=== PATIENT | male | born 1935 | race Caucasian/White ===

== ENCOUNTER 2016-09-20 20:04 | Emergency (ER) | payer MEDICARE ==
[~2016-09-20] VITALS: Ht 182.9 cm; Wt 76.2 kg
[~2016-09-20 20:04] MED LIST: SUMA25TA PO
--- NOTE | 2016-09-20 21:00 | NUR ---
Received pt from triage for rt arm fracture, per pt a tree fell on him and injured his rt arm. Swollen and mildly reddened. Xray and head/back CT done, positive for fracture, negative for head CT and degenerative disc disease for the spinal CT.
--- NOTE | 2016-09-20 21:30 | NUR ---
Applied icepacks and orthopedic treatment were done by Allison.
--- NOTE | 2016-09-20 22:00 | NUR ---
Patient discharged to home in stable conditon. Written and verbal after care instructions given. Patient verbalizes understanding of instructions.
[2016-09-20 22:14] VITALS: BP 146/77
== END 2016-09-20 22:00 | disposition home or self-care (01) ==
LOC: ER 20:04
DX: S52.571A Other intraarticular fracture of lower end of right radius, initial encounter for closed fracture (principal); I10 Essential (primary) hypertension; F10.20 Alcohol dependence, uncomplicated; M54.2 Cervicalgia; R51 Headache; W18.30XA Fall on same level, unspecified, initial encounter; Y93.89 Activity, other specified; Y99.8 Other external cause status; Y92.89 Other specified places as the place of occurrence of the external cause
CPT/HCPCS: 70450; 72125; 73110; A4663

== ENCOUNTER 2017-02-09 07:19 | Emergency (ER) | payer MEDICARE ==
[~2017-02-09] VITALS: Ht 182.9 cm; Wt 74.8 kg
--- NOTE | 2017-02-09 07:37 | NUR ---
ER MD at the bedside for eval and exam.
[2017-02-09 07:59] LABS: EOSINOPHILS # (AUTO) 0.1 K/uL (0.0-0.7); EOSINOPHILS % (AUTO) 1.6 % (0.0-7.0); LYMPHOCYTES # (AUTO) 1.2 K/UL (0.8-4.8); MONOCYTES # (AUTO) 0.5 K/UL (0.1-1.30)
[2017-02-09 08:03] LABS: BASOPHILS % (AUTO) 0.6 % (0.0-2.0); HEMATOCRIT 37.5 % (40-50); HEMOGLOBIN 12.7 G/DL (14.0-18.0); LYMPHOCYTES % (AUTO) 16.2 % (20.5-51.5); MEAN CORPUSCULAR HEMOGLOBIN 31.9 UUG (27.0-31.0); MEAN CORPUSCULAR HGB CONC 34 g/dL (32.0-37.0); MEAN CORPUSCULAR VOLUME 94.1 FL (82.0-92.0); MONOCYTES % (AUTO) 6.5 % (0.0-11.0); NEUTROPHILS # (AUTO) 5.5 K/UL (1.8-8.9); NEUTROPHILS % (AUTO) 75.1 % (38.5-71.5); PLATELET COUNT (AUTO) 226 K/UL (150-450); RED BLOOD CELL COUNT(AUTO) 3.98 MIL/UL (4.7-6.1); WHITE BLOOD COUNT (AUTO) 7.3 K/UL (4.0-11.2)
[2017-02-09 08:10] LABS: *BILIRUBIN,URIN NEGATIVE (NEGATIVE); *BLOOD, URINE NEGATIVE (NEGATIVE); *CLARITY,URINE CLEAR (CLEAR); *COLOR,URINE YELLOW (YELLOW); *KETONES,URINE NEGATIVE (NEGATIVE); *PROTEIN,URINE NEGATIVE (NEGATIVE); *UROBILINOGEN,URINE 0.2 E.U./dl (NORMAL); LEUKOCYTE ESTERASE ,URINE NEGATIVE (NEGATIVE); NITRITE, URINE NEGATIVE (NEGATIVE); UGLUCOSE NEGATIVE (NEGATIVE)
[2017-02-09 08:15] LABS: BACTERIA,URINE FEW /HPF (NONE SEEN); CARBON DIOXIDE 27 mmol/L (21-32); CHLORIDE 107 mmol/L (98-107); GLUCOSE 99 mg/dL (74-106); POTASSIUM 4.6 mmol/L (3.5-5.1); RBC,URINE NONE SEEN /HPF (0-3); SQUAMOUS EPITHELIAL CELL,UR NONE SEEN /HPF (NONE SEEN); UREA NITROGEN, BLOOD 11 mg/dL (7-18); WBC,URINE NONE SEEN /HPF (0-3)
--- NOTE | 2017-02-09 08:19 | NUR ---
PT SIGNED CONSENT FOR IV CONTRAST, PLACE IN CHART.
[2017-02-09 08:21] LABS: ALANINE AMINOTRANSFERASE 18 U/L (16-63); ALKALINE PHOSPHATASE 87 U/L (50-136); ASPARTATE AMINOTRANSFERASE 19 U/L (15-37); BILIRUBIN,DIRECT 0.2 mg/dL (0.0-0.2); TOTAL PROTEIN, SERUM 6.6 g/dL (6.4-8.2)
[2017-02-09] MEDS ORDERED: IOHEXOL 350 100 ML INFUS..BTL ONE (08:22)
[2017-02-09] MEDS ORDERED: IV NORMAL SALINE 250 ML IV ONE (08:22)
--- NOTE | 2017-02-09 08:40 | NUR ---
PT OUT OF ER FOR CT.
--- NOTE | 2017-02-09 09:24 | NUR ---
BELONGING LIST COMPLETED, PT NOT CANDIDATE FOR MRSA.
--- NOTE | 2017-02-09 09:40 | NUR ---
PT SPOKE TO MD W/ PLAN OF CARE, AND WILL BE DISCHARGE HOME.
[2017-02-09] MEDS: METOPROLOL TARTRATE 50 MG TABLET PO ONE (09:42)
[2017-02-09] MEDS ORDERED: METOPROLOL TARTRATE 50 MG TABLET ONE (09:53)
[2017-02-09 10:15] LABS: BAND % (MANUAL) 1 % (0-10); EOSINOPHILS % (MANUAL) 2 % (0-8); LYMPHOCYTES % (MANUAL) 16 % (20-40); MONOCYTES % (MANUAL) 5 % (2-10); NEUTROPHILS % (MANUAL) 76 % (42-75)
[2017-02-09 10:21] VITALS: BP 132/68
--- NOTE | 2017-02-09 10:30 | NUR ---
IV removed. Catheter intact and site benign. Pressure and 4x4 gauze applied to site. No bleeding noted.
--- NOTE | 2017-02-09 10:32 | NUR ---
Patient discharged to home in stable conditon. Written and verbal after care instructions given. Patient verbalizes understanding of instructions.
== END 2017-02-09 10:32 | disposition home or self-care (01) ==
LOC: ER 07:19
DX: R55 Syncope and collapse (principal); I47.1 Supraventricular tachycardia; R91.8 Other nonspecific abnormal finding of lung field; I10 Essential (primary) hypertension; G43.909 Migraine, unspecified, not intractable, without status migrainosus; Z90.49 Acquired absence of other specified parts of digestive tract
CPT/HCPCS: 36415; 71275; 80048; 80076; 81001; 82962; 83880; 84484; 85025; 85730; 93005; 99285; A4663; J7050; Q9967; 70030-TC

== ENCOUNTER 2017-04-09 12:57 | Emergency (ER) | payer MEDICARE ==
[~2017-04-09] VITALS: Ht 182.9 cm; Wt 70.3 kg
[2017-04-09] MEDS ORDERED: METOPROLOL SUCCINATE 25 MG PO (13:09)
[2017-04-09] MEDS: TETRACAINE HCL 0.5% OPHT DROP 2 ML BOTTLE OP ONE (14:11)
[2017-04-09] MEDS ORDERED: TETRACAINE HCL 0.5% OPHT DROP 2 ML BOTTLE ONE (14:20)
--- NOTE | 2017-04-09 14:38 | NUR ---
Patient discharged to home in stable conditon. Written and verbal after care instructions given. Patient verbalizes understanding of instructions. Stressed follow up ( pt was given referral for Ophthalmology by ) or return to ER for worsening s/s.
== END 2017-04-09 14:43 | disposition home or self-care (01) ==
LOC: ER 13:01
DX: H43.391 Other vitreous opacities, right eye (principal); G43.909 Migraine, unspecified, not intractable, without status migrainosus; I10 Essential (primary) hypertension; Z90.49 Acquired absence of other specified parts of digestive tract
CPT/HCPCS: 99282; A4663

== ENCOUNTER 2017-06-02 20:10 | Emergency (ER) | payer MEDICARE ==
[~2017-06-02] VITALS: Ht 182.9 cm; Wt 63.5 kg
[~2017-06-02 20:10] MED LIST changes: +METOPROLOL SUCCINATE 25 MG PO; -SUMA25TA PO
--- NOTE | 2017-06-02 20:30 | NUR ---
Patient brought into ER via [facility]. Patient had mechanical and open incision site on right flank . Upon arrival incision site with dressing. Undress dressing site,incision clean and intact with no redness and swelling noted.Bleed stopped
[2017-06-02] MEDS ORDERED: LIDOCAINE HCL 2% 20 ML VIAL TP ONE (20:45)
--- NOTE | 2017-06-02 21:22 | NUR ---
Patient discharged to home in stable conditon with friend taking patient home. Written and verbal after care instructions given. Patient verbalizes understanding of instructions.
[2017-06-02 21:27] VITALS: BP 140/60
== END 2017-06-02 21:27 | disposition home or self-care (01) ==
LOC: ER 20:10
DX: S21.111A Laceration without foreign body of right front wall of thorax without penetration into thoracic cavity, initial encounter (principal); I10 Essential (primary) hypertension; G43.909 Migraine, unspecified, not intractable, without status migrainosus; Z90.49 Acquired absence of other specified parts of digestive tract; W18.30XA Fall on same level, unspecified, initial encounter; Y93.89 Activity, other specified; Y92.89 Other specified places as the place of occurrence of the external cause; Y99.8 Other external cause status
CPT/HCPCS: 71010; A4663

== ENCOUNTER 2017-08-21 09:34 | Inpatient (IN) | payer MEDICARE ==
[~2017-08-21] VITALS: Ht 182.9 cm; Wt 63.5 kg
[2017-08-21 10:20] LABS: BASOPHILS # (AUTO) 0.1 K/uL (0.0-8.0); BASOPHILS % (AUTO) 0.8 % (0.0-2.0); EOSINOPHILS # (AUTO) 0.2 K/uL (0.0-0.7); EOSINOPHILS % (AUTO) 1.8 % (0.0-7.0); HEMATOCRIT 35.6 % (36.7-47.1); HEMOGLOBIN 11.6 g/dL (12.5-16.3); LYMPHOCYTES # (AUTO) 1.6 K/uL (20.0-40.0); LYMPHOCYTES % (AUTO) 15.7 % (20.5-51.5); MEAN CORPUSCULAR HEMOGLOBIN 29.3 uug (23.8-33.4); MEAN CORPUSCULAR HGB CONC 33 g/dL (32.5-36.3); MEAN CORPUSCULAR VOLUME 89.8 fL (73.0-96.2); MONOCYTES # (AUTO) 0.7 K/uL (2.0-10.0); MONOCYTES % (AUTO) 6.7 % (0.0-11.0); NEUTROPHILS # (AUTO) 7.7 K/uL (1.8-8.9); PLATELET COUNT (AUTO) 249 K/uL (152-348); RED BLOOD CELL COUNT(AUTO) 3.97 MIL/uL (4.06-5.63); WHITE BLOOD COUNT (AUTO) 10.3 K/uL (3.6-10.2)
[2017-08-21 10:26] LABS: CARBON DIOXIDE 26 mmol/L (21-32); CHLORIDE 104 mmol/L (98-107); CREATININE 1.2 mg/dL (0.6-1.3); GLUCOSE 95 mg/dL (74-106); UREA NITROGEN, BLOOD 28 mg/dL (7-18)
[2017-08-21 10:38] LABS: ALANINE AMINOTRANSFERASE 15 U/L (16-63); ALKALINE PHOSPHATASE 91 U/L (50-136); ASPARTATE AMINOTRANSFERASE 19 U/L (15-37); BILIRUBIN,DIRECT 0.1 mg/dL (0.0-0.2); BILIRUBIN,TOTAL 0.3 mg/dL (0.2-1.0); TOTAL PROTEIN, SERUM 7.1 g/dL (6.4-8.2)
[2017-08-21] MEDS ORDERED: VANCOMYCIN IV 1,000 MG in IV DEXTROSE 5% 250 ML IV ONE (11:00)
[2017-08-21] MEDS ORDERED: VANCOMYCIN IV 200 ML ONE (11:08)
[2017-08-21 11:52] LABS: *BILIRUBIN,URIN NEGATIVE (NEGATIVE); *BLOOD, URINE Trace-intact (NEGATIVE); *CLARITY,URINE CLEAR (CLEAR); *COLOR,URINE YELLOW (YELLOW); *KETONES,URINE NEGATIVE (NEGATIVE); *PROTEIN,URINE NEGATIVE (NEGATIVE); *UROBILINOGEN,URINE 0.2 E.U./dl (NORMAL); LEUKOCYTE ESTERASE ,URINE NEGATIVE (NEGATIVE); NITRITE, URINE NEGATIVE (NEGATIVE); UGLUCOSE NEGATIVE (NEGATIVE)
[2017-08-21 12:05] LABS: BACTERIA,URINE NONE SEEN /HPF (NONE SEEN); RBC,URINE 0-3 /HPF (0-3); SQUAMOUS EPITHELIAL CELL,UR FEW /HPF (NONE SEEN); WBC,URINE NONE SEEN /HPF (0-3)
[2017-08-21 12:47] VITALS: BP 135/70
[2017-08-21] MEDS ORDERED: MAGNESIUM HYDROXIDE 30 ML LIQUID UDC PO PRN (13:45)
[2017-08-21] MEDS ORDERED: ONDANSETRON 4 MG/2 ML VIAL IV PRN (13:45)
[2017-08-21] MEDS ORDERED: MORPHINE SULFATE 4 MG/1 ML DISP.SYRIN IV PRN (13:45)
[2017-08-21] MEDS ORDERED: ACETAMINOPHEN 325 MG TABLET PO PRN (13:45)
[2017-08-21] MEDS: PIPERACILLIN/TAZOBACTAM/D5W 3.375 G in PREMIXED 1 EACH IV SCH ×2 (15:22→21:58)
[2017-08-21 15:52] VITALS: BP 128/64
[2017-08-21 20:31] VITALS: BP 119/60
[2017-08-21] MEDS ORDERED: ENOXAPARIN SODIUM 40 MG/0.4 ML DISP.SYRIN SQ SCH (21:00)
[2017-08-21] MEDS ORDERED: METOPROLOL SUCCINATE XL 25 MG TAB.SR.24H PO SCH (21:00)
[2017-08-21] MEDS ORDERED: DOCUSATE SODIUM 100 MG CAPSULE PO SCH (21:00)
[2017-08-21] MEDS ORDERED: METOPROLOL SUCCINATE PO SCH (21:00)
[2017-08-22] MEDS: PIPERACILLIN/TAZOBACTAM/D5W 3.375 G in PREMIXED 1 EACH IV SCH ×2 (05:48→13:20)
[2017-08-22 06:58] VITALS: BP 159/78
[2017-08-22] MEDS ORDERED: PANTOPRAZOLE SODIUM 40 MG TABLET.DR PO SCH (07:00)
[2017-08-22 07:03] LABS: BASOPHILS # (AUTO) 0.1 K/uL (0.0-8.0); BASOPHILS % (AUTO) 0.7 % (0.0-2.0); EOSINOPHILS # (AUTO) 0.3 K/uL (0.0-0.7); EOSINOPHILS % (AUTO) 4.7 % (0.0-7.0); HEMATOCRIT 33.2 % (36.7-47.1); HEMOGLOBIN 11.1 g/dL (12.5-16.3); LYMPHOCYTES # (AUTO) 1.8 K/uL (20.0-40.0); LYMPHOCYTES % (AUTO) 25.6 % (20.5-51.5); MEAN CORPUSCULAR HEMOGLOBIN 30.1 uug (23.8-33.4); MEAN CORPUSCULAR HGB CONC 34 g/dL (32.5-36.3); MEAN CORPUSCULAR VOLUME 89.7 fL (73.0-96.2); MONOCYTES # (AUTO) 0.6 K/uL (2.0-10.0); MONOCYTES % (AUTO) 8.5 % (0.0-11.0); NEUTROPHILS # (AUTO) 4.3 K/uL (1.8-8.9); NEUTROPHILS % (AUTO) 60.5 % (38.5-71.5); PLATELET COUNT (AUTO) 241 K/uL (152-348); WHITE BLOOD COUNT (AUTO) 7.1 K/uL (3.6-10.2)
[2017-08-22 07:17] LABS: ALANINE AMINOTRANSFERASE 11 U/L (16-63); ALKALINE PHOSPHATASE 77 U/L (50-136); ASPARTATE AMINOTRANSFERASE 18 U/L (15-37); BILIRUBIN,TOTAL 0.6 mg/dL (0.2-1.0); CARBON DIOXIDE 25 mmol/L (21-32); CHLORIDE 107 mmol/L (98-107); CHOLESTEROL 135 mg/dL (<200); CREATININE 1.2 mg/dL (0.6-1.3); GLUCOSE 93 mg/dL (74-106); HDL CHOLESTEROL 42 mg/dL (40-60); PHOSPHOROUS 2.9 mg/dL (2.5-4.9); POTASSIUM 4.6 mmol/L (3.5-5.1); TOTAL PROTEIN, SERUM 6.6 g/dL (6.4-8.2); TRIGLYCERIDES 52 MG/DL (30-150); UREA NITROGEN, BLOOD 22 mg/dL (7-18)
[2017-08-22 07:25] LABS: IRON, SERUM 54 ug/dL (50-175)
[2017-08-22 07:34] LABS: THYROID STIMULATING HORMONE 1.523 mIU/mL (0.358-3.740)
[2017-08-22] MEDS ORDERED: VANCOMYCIN IV 1 G in PREMIXED 0 EACH IV SCH (11:00)
[2017-08-22 11:04] VITALS: BP 122/66
[2017-08-22 15:07] VITALS: BP 110/56
[2017-08-22] MEDS ORDERED: ASPI81TA31 PO (18:19)
[2017-08-22] MEDS ORDERED: SULF1TAB48 PO (18:19)
== END 2017-08-22 19:00 | disposition home or self-care (01) | DRG 602 ==
LOC: ER 09:36 → MED 12:05
PROVIDERS: ADMIT Internal Medicine; ATTEND Internal Medicine
DX: L03.115 Cellulitis of right lower limb (principal); N17.0 Acute kidney failure with tubular necrosis; I45.2 Bifascicular block; E44.0 Moderate protein-calorie malnutrition; Z68.1 Body mass index [BMI] 19.9 or less, adult; D64.9 Anemia, unspecified; M17.0 Bilateral primary osteoarthritis of knee; I70.222 Atherosclerosis of native arteries of extremities with rest pain, left leg; I10 Essential (primary) hypertension; Z87.891 Personal history of nicotine dependence; Z85.118 Personal history of other malignant neoplasm of bronchus and lung; Z85.828 Personal history of other malignant neoplasm of skin
CPT/HCPCS: 36415; 70030-TC; 71045; 83550; 83735; 84100; 84443; 85025; 85730; 87086; 93005; A4663; J1650; J2543; J3370; J7030; J7040